=== PATIENT | male | born 1990 | race African-American/Black ===

== ENCOUNTER 2021-06-02 23:42 | Emergency (ER) | payer SELFPAY ==
[~2021-06-02] VITALS: Ht 188 cm; Wt 67.3 kg
[2021-06-02 23:50] VITALS: BP 140/87
[2021-06-03] MEDS ORDERED: cefTRIAXone 500MG VIAL (J0696 PER 250MG) IM ONE (01:55)
[2021-06-03] MEDS ORDERED: LIDOCAINE 1% SDV 5ML VIAL DILUENT ONE (01:55)
[2021-06-03] MEDS ORDERED: DOXYCYCLINE HYCLATE 100MG TABLET PO ONE (01:55)
[2021-06-03] MEDS ORDERED: DOXY-443 PO (01:56)
[2021-06-03 02:17] LABS: GC DNA AMPLIFICATION POSITIVE (NEGATIVE)
[2021-06-06 14:23] LABS: HEPATITIS B SURFACE ANTIBODY POSITIVE (POSITIVE); HEPATITIS B SURFACE ANTIGEN NEGATIVE (NEGATIVE); HEPATITIS C VIRUS ABY INDEX 0.1 INDEX (<0.8); HIV 1&2 SCREEN CENTAUR NEGATIVE (NEGATIVE)
== END 2021-06-03 02:14 | disposition home or self-care (01) ==
LOC: M ED 23:42
DX: R30.0 Dysuria (principal); Z20.2 Contact with and (suspected) exposure to infections with a predominantly sexual mode of transmission; F17.210 Nicotine dependence, cigarettes, uncomplicated; F12.20 Cannabis dependence, uncomplicated
CPT/HCPCS: 81001; 86706; 86780; 86803; 87086; 87340; 87389; 87810; 87850; 96372; 99282; J0696

== ENCOUNTER 2021-07-28 11:06 | Emergency (ER) | payer SELFPAY ==
[~2021-07-28] VITALS: Ht 188 cm; Wt 68.1 kg
[~2021-07-28 11:06] MED LIST: DOXY-443 PO
[2021-07-28 11:07] VITALS: BP 131/79
[2021-07-28 15:05] LABS: GC DNA AMPLIFICATION POSITIVE (NEGATIVE)
[2021-07-28] MEDS ORDERED: cefTRIAXone 500MG VIAL (J0696 PER 250MG) IM ONE (15:10)
[2021-07-28] MEDS ORDERED: LIDOCAINE 1% SDV 5ML VIAL DILUENT ONE (15:10)
== END 2021-07-28 15:32 | disposition home or self-care (01) ==
LOC: M ED 11:06
DX: A54.9 Gonococcal infection, unspecified (principal); F17.200 Nicotine dependence, unspecified, uncomplicated

== ENCOUNTER 2023-08-27 22:36 | Emergency (ER) | payer SELFPAY ==
[~2023-08-27] VITALS: Ht 182.9 cm; Wt 97.0 kg
[~2023-08-27 22:36] MED LIST changes: +DOXY-323 PO; -DOXY-443 PO
[2023-08-28 03:41] LABS: Trichomonas vaginalis (AMP) NOT DETECTED (NEGATIVE)
[2023-08-28 04:04] LABS: GC DNA AMPLIFICATION POSITIVE (NEGATIVE)
[2023-08-28 04:06] VITALS: BP 142/77; TEMP 98; O2SAT 79
[2023-08-28] MEDS ORDERED: DOXY-323 PO (04:40)
[2023-08-28] MEDS: LIDOCAINE 1% SDV 5ML VIAL DILUENT ONE (04:49)
[2023-08-28] MEDS: cefTRIAXone 500MG VIAL IM ONE (04:49)
[2023-08-28] MEDS: DOXYCYCLINE HYCLATE 100MG TABLET PO ONE (04:50)
== END 2023-08-28 04:53 | disposition home or self-care (01) ==
LOC: M ED 22:36
DX: A74.9 Chlamydial infection, unspecified (principal); A54.9 Gonococcal infection, unspecified; Z86.19 Personal history of other infectious and parasitic diseases
CPT/HCPCS: 81001; 87086; 87661; 87810; 87850; 96372; 99283; J0696

== ENCOUNTER 2023-09-17 10:10 | Emergency (ER) | payer SELFPAY ==
[~2023-09-17] VITALS: Ht 188 cm; Wt 65.3 kg
[2023-09-17 10:10] VITALS: BP 134/80; TEMP 97.2; O2SAT 100
[2023-09-17 12:25] LABS: Trichomonas vaginalis (AMP) NOT DETECTED (NEGATIVE)
[2023-09-17 12:49] LABS: GC DNA AMPLIFICATION NEGATIVE (NEGATIVE)
== END 2023-09-17 10:52 | disposition home or self-care (01) ==
LOC: M ED 10:10
DX: Z11.3 Encounter for screening for infections with a predominantly sexual mode of transmission (principal); F17.200 Nicotine dependence, unspecified, uncomplicated

== ENCOUNTER 2025-02-11 09:05 | Emergency (ER) | payer SELFPAY ==
[~2025-02-11] VITALS: Ht 182.9 cm; Wt 67.5 kg
[~2025-02-11 09:05] MED LIST changes: -DOXY-323 PO; +DOXY-441 PO
[2025-02-11 10:00] VITALS: BP 141/82; TEMP 97.3; O2SAT 100
[2025-02-11] MEDS ORDERED: IBUP600T42 PO (10:06)
[2025-02-11] MEDS ORDERED: PENI500T PO (10:06)
== END 2025-02-11 10:21 | disposition home or self-care (01) ==
LOC: M ED 09:05
DX: K04.7 Periapical abscess without sinus (principal); G50.1 Atypical facial pain; Z79.1 Long term (current) use of non-steroidal anti-inflammatories (NSAID); Z79.2 Long term (current) use of antibiotics